=== PATIENT | female | born 2000 | race Two or more races ===

== ENCOUNTER 2022-03-31 16:46 | Emergency (ER) | payer OTHER ==
[~2022-03-31] VITALS: Ht 154.9 cm; Wt 74.8 kg
[2022-03-31] MEDS ORDERED: ADVIL200 M1 PO (17:02)
[2022-03-31] MEDS ORDERED: ZITHROMAX200 MG/51 PO (17:02)
== END 2022-03-31 18:54 | disposition home or self-care (01) ==
LOC: EMR PED 16:46 → ER 16:46 → EMR PED 17:21
DX: U07.1 COVID-19 (principal); A49.3 Mycoplasma infection, unspecified site

== ENCOUNTER 2022-04-04 12:40 | Outpatient (CLI) | payer OTHER ==
[~2022-04-04 12:40] MED LIST: ADVIL200 M1 PO; ZITHROMAX200 MG/51 PO
== END 2022-04-04 13:40 | disposition home or self-care (01) ==
LOC: ASH CLINIC 12:40
PROVIDERS: ATTEND Emergency Medicine
DX: U07.1 COVID-19 (principal)